=== PATIENT | male | born 1960 | race Native Hawaiian/Other Pacific Islander ===

== ENCOUNTER 2017-06-29 21:03 | Emergency (ER) | payer OTHER ==
[2017-06-29 21:30] VITALS: BMI 23.1
--- NOTE | 2017-06-29 21:42 | ED PDOC ---
Arrival/HPI - General Chief Complaint: Alcohol Ingestion Time Seen by Provider: 06/29/17 21:31 Historian: Patient - History of Present Illness Narrative History of Present Illness (Text): 06/29/17 21:39 A 58 year old male, with unknown past medical history, brought in by EMS to the emergency department for alcohol intoxication. Patient unable to answer questions. Limited HPI and ROS due intoxication. Past Medical History - Provider Review Nursing Documentation Reviewed: Yes - Psychiatric Hx Substance Use: No (denies) Family/Social History - Physician Review Nursing Documentation Reviewed: Yes Family/Social History: Unknown Family HX Smoking Status: denies Hx Alcohol Use: Yes Hx Substance Use: No (denies) Allergies/Home Meds Allergies/Adverse Reactions: Allergies Unobtainable Allergy (Unverified 06/29/17 22:05) Review of Systems - Review of Systems Systems not reviewed;Unavailable: Intoxicated Physical Exam Vital Signs Reviewed: Yes Vital Signs Temp Pulse Resp BP Pulse Ox 06/29/17 22:15 98.2 F 68 18 125/93 H 100 Temperature: Afebrile Blood Pressure: Normal Pulse: Regular Respiratory Rate: Normal Appearance: Positive for: Well-Appearing, Non-Toxic, Comfortable Pain Distress: None Mental Status: Positive for: other (intoxicated) - Systems Exam Head: Present: Atraumatic, Normocephalic Pupils: Present: PERRL Extroacular Muscles: Present: EOMI Conjunctiva: Present: Normal Mouth: Present: Moist Mucous Membranes Neck: Present: Normal Range of Motion Respiratory/Chest: Present: Clear to Auscultation, Good Air Exchange. No: Respiratory Distress, Accessory Muscle Use Cardiovascular: Present: Regular Rate and Rhythm, Normal S1, S2. No: Murmurs Abdomen: No: Tenderness, Distention, Peritoneal Signs Back: Present: Normal Inspection Upper Extremity: Present: Normal Inspection. No: Cyanosis, Edema Lower Extremity: Present: Normal Inspection. No: Edema Neurological: Present: GCS=15, CN II-XII Intact, Speech Normal, Motor Func Grossly Intact, Normal Sensory Function Skin: Present: Warm, Dry, Normal Color. No: Rashes Psychiatric: Present: Alert, Intoxicated Medical Decision Making ED Course and Treatment: 06/29/17 21:40 Impression: 58 year old male with AMS. Differential Diagnosis included but are not limited to: alcohol intoxication Plan: -- Reassess and disposition Prior Visits: Notes and results from previous visits were reviewed. Patient was last seen in the emergency department on Progress Notes: 06/30/17 00:[address] Patterson, pending sobriety, re-evaluation, and disposition. - Lab Interpretations Lab Results: 06/29/17 23:03 06/29/17 23:03 Lab Results 06/29/17 23:03: Alcohol, Quantitative 371 H* 06/29/17 23:03: Salicylates < 1 L, Acetaminophen < 10.0 L 06/29/17 23:03: Sodium 147, Potassium 3.6, Chloride 103, Carbon Dioxide 27, Anion Gap 21 H, BUN 5 L, Creatinine 0.7 L, Est GFR ( Amer) > 60, Est GFR (Non-Af Amer) > 60, Random Glucose 90, Calcium 8.6, Magnesium 1.8, Total Bilirubin 0.5, AST 53, ALT 31, Alkaline Phosphatase 50, Total Protein 7.4, Albumin 4.3, Globulin 3.2, Albumin/Globulin Ratio 1.4 06/29/17 23:03: WBC 4.0 L, RBC 4.45, Hgb 13.4 L, Hct 39.8 L, MCV 89.4, MCH 30.1 , MCHC 33.7, RDW 13.0, Plt Count 218, MPV 9.6, Gran % 43.4 L, Lymph % (Auto) 41.4 H, [place]fer[place] % (Auto) 11.2 H, Eos % (Auto) 3.0, Baso % (Auto) 1.0, Gran # 1.74, Lymph # (Auto) 1.7, [place]ferro # (Auto) 0.5, Eos # (Auto) 0.1, Baso # (Auto) 0.04 - Scribe Statement The provider has reviewed the documentation as recorded by the Juana Brunson Provider Scribe Attestation: All medical record entries made by the Scribe were at my direction and personally dictated by me. I have reviewed the chart and agree that the record accurately reflects my personal performance of the history, physical exam, medical decision making, and the department course for this patient. I have also personally directed, reviewed, and agree with the discharge instructions and disposition. Disposition/Present on Arrival - Present on Arrival Any Indicators Present on Arrival: No History of DVT/PE: No History of Uncontrolled Diabetes: No Urinary Catheter: No History of Decub. Ulcer: No History Surgical Site Infection Following: None - Disposition Have Diagnosis and Disposition been Completed?: Yes Diagnosis: Alcohol intoxication Disposition Time: 00:18 Condition: [facility]IR Forms: [employer] (Kazakh)
[2017-06-29 23:09] LABS: BASO # 0.04 K/mm3 (0.0-2.0); EOS # 0.1 (0.0-0.7); GRAN # 1.74 (1.4-6.5); GRAN % 43.4 % (50.0-68.0); HEMOGLOBIN 13.4 g/dL (14.0-18.0); LYMPH # 1.7 (1.2-3.4); LYMPH % 41.4 % (22.0-35.0); MEAN CELL VOLUME 89.4 fl (80.0-105.0); MEAN CORPUSCULAR HEMOGLOBIN 30.1 pg (25.0-35.0); MEAN CORPUSCULAR HGB CONC 33.7 g/dl (31.0-37.0); MEAN PLATELET VOLUME 9.6 fl (7.0-11.0); MONO # 0.5 (0.1-0.6); MONO % 11.2 % (1.0-6.0); RBC 4.45 10^6/uL (3.5-6.1)
[2017-06-29 23:20] LABS: ACETAMINOPHEN < 10.0 ug/ml (10.0-20.0); SALICYLATE < 1 mg/dL (2.0-20.0)
[2017-06-29 23:22] LABS: ALB/GLOB RATIO 1.4 (1.1-1.8); ALBUMIN 4.3 g/dL (3.0-4.8); ALT/SGPT 31 U/L (7-56); AST/SGOT 53 U/L (17-59); BLOOD UREA NITROGEN 5 mg/dL (7-21); CALCIUM 8.6 mg/dL (8.4-10.5); GFR AFRICAN-AMERICAN > 60; GFR NON-AFRICAN AMERICAN > 60
[2017-06-29 23:30] VITALS: TEMP 98.2
--- NOTE | 2017-06-30 01:21 | ED PDOC ---
Physical Exam Vital Signs Temp Pulse Resp BP Pulse Ox 06/29/17 22:15 98.2 F 68 18 125/93 H 100 Medical Decision Making ED Course and Treatment: 06/29/17 23:00 Case endorsed to me by Dr. Alonzo, pending sobriety, re-evaluation, and disposition. - Lab Interpretations Lab Results: 06/29/17 23:03 06/29/17 23:03 Lab Results 06/29/17 23:03: Alcohol, Quantitative 371 H* 06/29/17 23:03: Salicylates < 1 L, Acetaminophen < 10.0 L 06/29/17 23:03: Sodium 147, Potassium 3.6, Chloride 103, Carbon Dioxide 27, Anion Gap 21 H, BUN 5 L, Creatinine 0.7 L, Est GFR ( Amer) > 60, Est GFR (Non-Af Amer) > 60, Random Glucose 90, Calcium 8.6, Magnesium 1.8, Total Bilirubin 0.5, AST 53, ALT 31, Alkaline Phosphatase 50, Total Protein 7.4, Albumin 4.3, Globulin 3.2, Albumin/Globulin Ratio 1.4 06/29/17 23:03: WBC 4.0 L, RBC 4.45, Hgb 13.4 L, Hct 39.8 L, MCV 89.4, MCH 30.1 , MCHC 33.7, RDW 13.0, Plt Count 218, MPV 9.6, Gran % 43.4 L, Lymph % (Auto) 41.4 H, [place] % (Auto) 11.2 H, Eos % (Auto) 3.0, Baso % (Auto) 1.0, Gran # 1.74, Lymph # (Auto) 1.7, [place] # (Auto) 0.5, Eos # (Auto) 0.1, Baso # (Auto) 0.04 Disposition/Present on Arrival - Present on Arrival Any Indicators Present on Arrival: No History of DVT/PE: No History of Uncontrolled Diabetes: No Urinary Catheter: No History of Decub. Ulcer: No History Surgical Site Infection Following: None - Disposition Diagnosis: Alcohol intoxication Condition: FAIR Forms: [employer] ([place])
[2017-06-30 01:54] VITALS: O2SAT 98
[2017-06-30 06:07] VITALS: BP 105/62; RESP 17
[2017-06-30 06:44] VITALS: PULSE 82
== END 2017-06-30 06:43 | disposition home or self-care (01) ==
LOC: EDBD → ED 21:03
DX: F10.129 Alcohol abuse with intoxication, unspecified (principal); Y90.8 Blood alcohol level of 240 mg/100 ml or more
CPT/HCPCS: 80053; 83735; 85025; 99283; G0480